=== PATIENT | female | born 1955 | race Caucasian/White ===

== ENCOUNTER 2020-06-01 15:04 | Inpatient (IN) ==
--- NOTE | 2020-06-01 15:02 | Emergency Department Note ---
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 Upon EMS arrival her symptoms were improving rapidly and only had a subtle left facial droop noted at rest. There is no upper face or eyelid involvement. She has no overt extremity weakness, though equivocal pronator drift. She has fluent speech at this time. Stroke alert was activated upon my discussion with EMS on med command call. Given the patient's minimal/residual symptoms that are quickly resolving unlike ly to proceed with TPA however will complete stroke alert evaluation. The patient did take 3 baby aspirin following the onset of her symptoms. She is not on anticoagulation. Of note, the patient does have a secondary exposure to COVID-19 through her where her 's father is COVID-19 positive and had interacted with his father but the patient herself has not. Neither her or herself have developed any Covid/flulike symptoms. She denies CP, SOB, n/v/d, urinary sx. On arrival the patient is slightly anxious but no acute distress, afebrile with stable vital signs. She has residual subtle left lower facial weakness/asymmetry at rest without any notable asymmetry with smile. There is no involvement of the forehead or eyelid. No gross extremity weakness upon cursory exam in the hallway on the way to CT from ambulance bay. The patient's did arrive to the emergency department and was instructed to wait outside and he gave us his phone # involve him in decision making. I did call the patient's and spoke to him and updated him on the toe stroke evaluation. CT of the head and CT of the head and neck were negative for ICH, ischemia or severe narrowing or occlusion of large vessels. The patient's symptoms did seem to fluctuate slightly with some of the upper extremity weakness and difficulty with coordination. Case was reviewed with Dr. Gonzalez, [facility] telestroke neurology, who evaluated the patient via telestroke monitor and after his evalua tion we did agree to defer TPA at this time given minimal symptoms and unclear COVID-19 status (which could contribute to bleeding risk). The patient was agreeable with this. Plan to load with 300 mg of closet Plavix after bedside swallow test was passed under the supervision of Dr. Gonzalez. Will need dual antiplatelet therapy for 30 days. Admitting team may consider Metformin given possibility of prediabetes and role endothelial function. SBP goal < 180. was updated on plan over the phone. He also agrees. Case d/w Fay Johns, Shahbaz PAC, with Nikko Mahmoodhammond general hospitalist who will evaluated the patient for admission. Triage Nursing notes reviewed and agree them. Additional history obtained from EMS Prior medical records reviewed Vital Signs: reviewed and remarkable for HTN. Differential diagnosis: Infection, dehydration, metabolic abnormality, hypo/hyperglycemia, electrolyte disturbance, anemia, hypoxia, cardiac sources, intracerebral event, toxicologic, neurologic, as well as other pathologies. ER treatment provided: See below. Diagnostics interpreted by me: ECG: Normal sinus rhythm, 85 bpm, no ectopy, no overt ST elevation or depression, QTC 433, QRS 80. Cardiac Monitoring: An order for continuous cardiac monitoring was placed and demonstrated NSR 85 bpm, no ectopy. Laboratory studies: See below Imaging studies: See below Consultation(s): Dr. Gonzalez, [facility] telestroke neurology. 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 Upon EMS arrival her symptoms were improving rapidly and only had a subtle left facial droop noted at rest. There is no upper face or eyelid involvement. She has no overt extremity weakness, though equivocal pronator drift. She has fluent speech at this time. Stroke alert was activated upon my discussion with EMS on med command call. Given the patient's minimal/residual symptoms that are quickly resolving unlikely to proceed with TPA however will complete stroke alert evaluation. The patient did take 3 baby aspirin following the onset of her symptoms. She is not on anticoagulation. Of note, the patient does have a secondary exposure to COVID-19 through her where her 's father is COVID-19 positive and had interacted with his father but the patient herself has not. Neither her or herself have developed any Covid/flulike symptoms. She denies CP, SOB, n/v/d, urinary sx. ROS: See above HPI for pertinent positives & negatives. A total of 10 systems reviewed and were otherwise negative. PAST MEDICAL HISTORY:See Below PAST SURGICAL HISTORY:See Below FAMILY HISTORY:See Below SOCIAL HISTORY:See Below HOME MEDICATIONS:See Below ALLERGIES:See Below VITALS:See Below PHYSICAL EXAMINATION: GENERAL: Awake, alert, anxious-appearing, in no distress HENT: Normocephalic, atraumatic. Oropharynx with dry mucous membranes and otherwise unremarkable. EYES: Normal conjunctiva. Sclera non-icteric. EOMI. No nystamgus. PEARRL. NECK: Supple. No nuchal rigidity. FROM. No JVD. RESPIRATORY: Clear to auscultation. CARDIAC: Regular rate, normal rhythm. Extremities warm and well perfused. Pulses equal. ABDOMEN: Soft, non-distended. No tenderness to palpation. No rebound or guarding. No masses. RECTAL: Deferred. MUSCULOSKELETAL: Chest examination reveals no tenderness. The back is symmetrical on inspection without obvious abnormality. There is no CVA tenderness to palpation. No joint edema. LOWER EXTREMITIES: Calves are equal size bilaterally and non-tender. No edema. No discoloration. NEURO: Mild left lower facial weakness with asymmetry at rest that is more subtle with full smile. No overt dysarthria. Speech is fluent. No overt weakness of extremities though left upper extremity is equivocal pronator drift. SKIN: No rash or jaundice noted. ED COURSE: Critical Care: I have personally spent greater than 35 minutes of critical care time in the di rect management of this patient. This includes bedside care, interpretation of diagnostic studies, and testing, discussion with consultants, patient, and family members, and other required patient management activities. This 35 minutes is in excess of all separately billable procedures. Past Med/Surg History Medical History Asthma GERD (gastroesophageal reflux disease) Hyperlipidemia Hypothyroidism Prediabetes Surgical History History of partial hysterectomy Family History Brother Diabetes Father Diabetes Grandfather (Paternal) Heart disease Mother Breast cancer Social History Smoking Status: Never smoker Second Hand Exposure: No; Do You Dip or Chew Tobacco: No; Hx Alcohol Use: Yes Alcohol type: wine Hx Substance Use: No Preferred Language: Zimbabwean Communication Ability: Effective Manager Emergency Required: No Beliefs That Will Affect Care: None marital status: Current Living Situation: Spouse current occupational status: employed 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[employer] Feels Safe at Home: Yes Safety Concerns: Feels Safe At This Time during the past year weight has: decreased > 10 lbs Assistive Devices: Glasses Allergies Allergies Allergy/AdvReac Type Severity Reaction Status Date / Time Quinolones Allergy Unknown "JOINTS Verified 06/01/20 17:15 START LOCKING UP." Home Meds Home Medications Medication Instructions Recorded Confirmed Vitamin B Powder 1 dose PO DAILY 06/01/20 06/01/20 albuterol sulfate 2.5 mg INHALATION Q4H PRN 06/01/20 06/01/20 albuterol sulfate [Proventil HFA] 2 inh INHALATION Q4H PRN 06/01/20 06/01/20 ascorbic acid (vitamin C) [Vitamin 250 mg PO BID 06/01/20 06/01/20 C] aspirin [Aspirin Low-Strength] 81 mg PO QPM 06/01/20 06/01/20 atorvastatin 10 mg PO QPM 06/01/20 06/01/20 budesonide-formoterol [Symbicort] 2 puff INHALATION DAILY 06/01/20 06/01/20 calcium carbonate-vitamin D3 1 tab PO DAILY 06/01/20 06/01/20 cholecalciferol (vitamin D3) 25 mcg PO DAILY 06/01/20 06/01/20 [Vitamin D3] coenzyme Q10 [Co Q-10] 10 mg PO DAILY 06/01/20 06/01/20 cyanocobalamin (vitamin B-12) 1,000 mcg PO DAILY 06/01/20 06/01/20 levothyroxine [Synthroid] 88 mcg PO QAM 06/01/20 06/01/20 montelukast 10 mg PO DAILY 06/01/20 06/01/20 multivitamin,lk-epmw-Ca-FA-min 1 tab PO QAM 06/01/20 06/01/20 [Multivitamin And Mineral] omega-3 acid ethyl esters [Lovaza] 1 cap PO QAM 06/01/20 06/01/20 Results & Data (ED) Vital Signs Vital Signs - 24 hr 06/01/20 15:20 06/01/20 15:22 06/01/20 15:26 Temperature 37.0 C Temperature Source Oral Pulse Rate 97 H 90 92 H Pulse Rate from SpO2 Sensor Respiratory Rate 20 Respiratory Effort / Characteristics Non-Labored Respiratory Depth Normal Blood Pressure 167/103 H 167/103 H Blood Pressure Mean 124 137 Pulse Oximetry 95 Oxygen Delivery Method Room Air Sepsis Recent Fever Within 48 Hours No Sepsis New/Unexplained Change in Mental Status N/A Sepsis Action Taken by Nursing No Action Required 06/01/20 15:30 06/01/20 15:43 06/01/20 15:50 Temperature Temperature Source Pulse Rate 90 100 H 90 Pulse Rate from SpO2 Sensor Respiratory Rate Respiratory Effort / Characteristics Respiratory Depth Blood Pressure 173/92 H Blood Pressure Mean 117 Pulse Oximetry Oxygen Delivery Method Sepsis Recent Fever Within 48 Hours Sepsis New/Unexplained Change in Mental Status Sepsis Action Taken by Nursing 06/01/20 16:00 06/01/20 16:10 06/01/20 16:20 Temperature Temperature Source Pulse Rate 97 H 87 86 Pulse Rate from SpO2 Sensor 88 Respiratory Rate Respiratory Effort / Characteristics Respiratory Depth Blood Pressure Blood Pressure Mean Pulse Oximetry 96 Oxygen Delivery Method Sepsis Recent Fever Within 48 Hours Sepsis New/Unexplained Change in Mental Status Sepsis Action Taken by Nursing 06/01/20 16:30 06/01/20 16:31 06/01/20 16:40 Temperature Temperature Source Pulse Rate 85 82 89 Pulse Rate from SpO2 Sensor 82 Respiratory Rate Respiratory Effort / Characteristics Respiratory Depth Blood Pressure 142/107 H Blood Pressure Mean 111 Pulse Oximetry 95 Oxygen Delivery Method Sepsis Recent Fever Within 48 Hours Sepsis New/Unexplained Change in Mental Status Sepsis Action Taken by Nursing 06/01/20 16:50 Temperature Temperature Source Pulse Rate 83 Pulse Rate from SpO2 Sensor 84 Respiratory Rate Respiratory Effort / Characteristics Respiratory Depth Blood Pressure Blood Pressure Mean Pulse Oximetry 98 Oxygen Delivery Method Sepsis Recent Fever Within 48 Hours Sepsis New/Unexplained Change in Mental Status Sepsis Action Taken by Nursing Laboratory Data Attestation: I reviewed the patient's lab results. Result diagrams: 06/01/20 16:13 06/01/20 16:13 Lab Results 06/01/20 06/01/20 06/01/20 Range/Units 15:32 15:50 15:50 WBC (4.8-10.8) K/uL RBC (4.2-5.4) M/uL Hgb (12.0-16.0) g/dL Hct (37-47) % MCV (80-100) fL MCH (25-34) pg MCHC (32-36) g/dL RDW Std Deviation (36.4-46.3) fL RDW Coeff of Marty (11.5-14.5) % Plt Count (130-400) K/uL MPV (7.4-10.4) fL Immature Gran % (Auto) % Neut % (Auto) % Lymph % (Auto) % Murray % (Auto) % Eos % (Auto) % Baso % (Auto) % Neut # (Auto) (1.4-6.5) K/uL Lymph # (Auto) (1.2-3.4) K/uL Murray # (Auto) (0.11-0.59) K/uL Eos # (Auto) (0-0.5) K/uL Baso # (Auto) (0-0.2) K/uL Immature Gran # (Auto) (0.00-0.02) K/uL PT (9.0-12.0) Seconds INR (0.9-1.1) APTT (21.0-31.0) Seconds PTT Ratio Sodium (136-145) mmol/L Potassium (3.5-5.1) mmol/L Chloride (98-107) mmol/L Carbon Dioxide (21-32) mmol/L Anion Gap (3-11) BUN (7-18) mg/dl Creatinine (0.6-1.2) mg/dl Est Cr Clr Drug Dosing ml/min Est GFR ( Amer) Est GFR (Non-Af Amer) BUN/Creatinine Ratio (10-20) Glucose (70-99) mg/dl POC Glucose 104 H (70-99) mg/dl Calcium (8.5-10.1) mg/dl Magnesium (1.8-2.4) mg/dl Total Bilirubin (0.2-1) mg/dl AST (15-37) U/L ALT (12-78) U/L Alkaline Phosphatase (45-117) U/L Troponin I (0-0.045) ng/ml Total Protein (6.4-8.2) gm/dl Albumin (3.4-5.0) gm/dl Globulin (2.5-4.0) gm/dl Albumin/Globulin Ratio (0.9-2) TSH (0.300-4.500) uIu/ml COVID-19 [facility] SARS-[facility]-2, RNA, NAAT NEGATIVE (NEGATIVE) Blood Type Antibody Screen 06/01/20 06/01/20 06/01/20 Range/Units 16:13 16:13 16:13 WBC 10.00 (4.8-10.8) K/uL RBC 5.24 (4.2-5.4) M/uL Hgb 15.1 (12.0-16.0) g/dL Hct 45.0 (37-47) % MCV 85.9 (80-100) fL MCH 28.8 (25-34) pg MCHC 33.6 (32-36) g/dL RDW Std Deviation 43.7 (36.4-46.3) fL RDW Coeff of Marty 14.1 (11.5-14.5) % Plt Count 219 (130-400) K/uL MPV 11.7 H (7.4-10.4) fL Immature Gran % (Auto) 0.2 % Neut % (Auto) 62.7 % Lymph % (Auto) 28.0 % Murray % (Auto) 5.6 % Eos % (Auto) 3.2 % Baso % (Auto) 0.3 % Neut # (Auto) 6.27 (1.4-6.5) K/uL Lymph # (Auto) 2.80 (1.2-3.4) K/uL Murray # (Auto) 0.56 (0.11-0.59) K/uL Eos # (Auto) 0.32 (0-0.5) K/uL Baso # (Auto) 0.03 (0-0.2) K/uL Immature Gran # (Auto) 0.02 (0.00-0.02) K/uL PT 10.5 (9.0-12.0) Seconds INR 1.0 (0.9-1.1) APTT 27.9 (21.0-31.0) Seconds PTT Ratio 1.0 Sodium (136-145) mmol/L Potassium (3.5-5.1) mmol/L Chloride (98-107) mmol/L Carbon Dioxide (21-32) mmol/L Anion Gap (3-11) BUN (7-18) mg/dl Creatinine (0.6-1.2) mg/dl Est Cr Clr Drug Dosing ml/min Est GFR ( Amer) Est GFR (Non-Af Amer) BUN/Creatinine Ratio (10-20) Glucose (70-99) mg/dl POC Glucose (70-99) mg/dl Calcium (8.5-10.1) mg/dl Magnesium (1.8-2.4) mg/dl Total Bilirubin (0.2-1) mg/dl AST (15-37) U/L ALT (12-78) U/L Alkaline Phosphatase (45-117) U/L Troponin I (0-0.045) ng/ml Total Protein (6.4-8.2) gm/dl Albumin (3.4-5.0) gm/dl Globulin (2.5-4.0) gm/dl Albumin/Globulin Ratio (0.9-2) TSH (0.300-4.500) uIu/ml COVID-19 Eval Order SARS-CoV-2, RNA, NAAT (NEGATIVE) Blood Type O Positive Antibody Screen NEGATIVE 06/01/20 06/01/20 Range/Units 16:13 16:13 WBC (4.8-10.8) K/uL RBC (4.2-5.4) M/uL Hgb (12.0-16.0) g/dL Hct (37-47) % MCV (80-100) fL MCH (25-34) pg MCHC (32-36) g/dL RDW Std Deviation (36.4-46.3) fL RDW Coeff of Marty (11.5-14.5) % Plt Count (130-400) K/uL MPV (7.4-10.4) fL Immature Gran % (Auto) % Neut % (Auto) % Lymph % (Auto) % Murray % (Auto) % Eos % (Auto) % Baso % (Auto) % Neut # (Auto) (1.4-6.5) K/uL Lymph # (Auto) (1.2-3.4) K/uL Murray # (Auto) (0.11-0.59) K/uL Eos # (Auto) (0-0.5) K/uL Baso # (Auto) (0-0.2) K/uL Immature Gran # (Auto) (0.00-0.02) K/uL PT (9.0-12.0) Seconds INR (0.9-1.1) APTT (21.0-31.0) Seconds PTT Ratio Sodium 138 (136-145) mmol/L Potassium 3.6 (3.5-5.1) mmol/L Chloride 103 (98-107) mmol/L Carbon Dioxide 26 (21-32) mmol/L Anion Gap 8.0 (3-11) BUN 26 H (7-18) mg/dl Creatinine 0.87 (0.6-1.2) mg/dl Est Cr Clr Drug Dosing 62.5 ml/min Est GFR ( Amer) 82.8 Est GFR (Non-Af Amer) 71.4 BUN/Creatinine Ratio 29.5 H (10-20) Glucose 96 (70-99) mg/dl POC Glucose (70-99) mg/dl Calcium 9.6 (8.5-10.1) mg/dl Magnesium 2.2 (1.8-2.4) mg/dl Total Bilirubin 0.6 (0.2-1) mg/dl AST 17 (15-37) U/L ALT 21 (12-78) U/L Alkaline Phosphatase 113 (45-117) U/L Troponin I < 0.015 (0-0.045) ng/ml Total Protein 7.6 (6.4-8.2) gm/dl Albumin 4.4 (3.4-5.0) gm/dl Globulin 3.2 (2.5-4.0) gm/dl Albumin/Globulin Ratio 1.4 (0.9-2) TSH 0.819 (0.300-4.500) uIu/ml COVID-19 Eval Order SARS-CoV-2, RNA, NAAT (NEGATIVE) Blood Type Antibody Screen Administered Medications Aspirin (Aspirin 81 Mg Ectab) 81 mg PO HS AMY Stop: 07/01/20 20:59 Last Admin: 06/01/20 21:21 Dose: 81 mg Documented by: [id number] Atorvastatin Calcium (Atorvastatin 40 Mg Tab) 40 mg PO HS AMY Stop: 07/01/20 20:59 Last Admin: 06/01/20 21:21 Dose: 40 mg Documented by: [id number] Heparin Sodium (Porcine) (Heparin Sod 5,000 Unit/0.5 Ml Vial) 5,000 units SQ Q8 AMY Stop: 07/01/20 21:59 Last Admin: 06/01/20 21:21 Dose: 5,000 units Documented by: [id number] Montelukast Sodium (Montelukast Sodium 10 Mg Tablet) 10 mg PO HS AMY Stop: 07/01/20 20:59 Last Admin: 06/01/20 21:21 Dose: 10 mg Documented by: [id number] Discontinued Medications Clopidogrel Bisulfate (Clopidogrel Bisulfate 300 Mg Tab) 300 mg PO NOW STA Stop: 06/01/20 16:15 Last Admin: 06/01/20 16:34 Dose: 300 mg Documented by: [id number] Gadobutrol (Gadobutrol 65ml Vial) 7.3 ml IV ONCE ONE Stop: 06/01/20 20:05 Last Admin: 06/01/20 20:05 Dose: 7.3 ml Documented by: [id number] Sodium Chloride (Nss 1000ml) 1,000 mls @ 999 mls/hr IV .Q1H1M ONE Stop: 06/01/20 15:59 Last Infusion: 06/01/20 17:35 Dose: 0 mls/hr Documented by: [id number] Admin: 06/01/20 15:54 Dose: 999 mls/hr Documented by: [id number] Ioversol (Optiray 320 125ml) 120 ml IV ONCE ONE Stop: 06/01/20 15:22 Last Admin: 06/01/20 15:21 Dose: 120 ml Documented by: [id number] Lorazepam (Lorazepam 0.5 Mg Tab) 0.5 mg PO ONCE ONE Stop: 06/01/20 18:14 Last Admin: 06/01/20 19:24 Dose: 0.5 mg Documented by: [id number] Discharge Plan Visit Data Chief Complaint: Stroke Alert ED Provider: Patrick Boo Discharge Problem: Cerebrovascular accident, Weakness on left side of face, Hypertension Patient Disposition: Admitted As Inpatient Discharge Instructions Interventions: ED Discharge Assessment Last Done: 06/01/20 17:48 Discharge Problem: Cerebrovascular accident Qualifiers: CVA mechanism: unspecified Qualified Code(s): I63.9 - Cerebral infarction, unspecified
[~2020-06-01 15:04] MED LIST: SODIUM CHLORIDE 0.9% 1000ML 1,000 ML IV ONE
--- OUTSIDE RECORDS SUMMARY | 2020-06-01 15:07 | External Medical Summary | Continuity of Care Document ---
:1955 Author Name Ellen Page Address Unavailable Unavailable , Care Team Providers Name Role Phone Arron Booth [email or web address] PCP, UNKNOWN Unavailable Unavailable Problems Active medical history not documented Allergies and Adverse Reactions Allergy history not documented Medications Medications not documented Procedures Procedures not documented Immunizations Immunizations not documented Plan of Treatment Planned Observations Planned Goals not documented Results No Known Results Results not documented
[2020-06-01] MEDS ORDERED: OPTIRAY 320 125ml IV ONE (15:21)
--- NOTE | 2020-06-01 15:24 | CT Scan Report ---
CT SCAN OF THE BRAIN WITHOUT IV CONTRAST CLINICAL HISTORY: Strokelike symptoms. Facial droop. COMPARISON STUDY: No priors. TECHNIQUE: Unenhanced axial CT scan of the brain is performed from the vertex to the skull base. A d ose lowering technique was utilized adhering to the principles of ALARA. FINDINGS: Brain parenchyma: There is minimal microangiopathic change. There is no hemorrhage, mass effect, or e vidence of acute territorial ischemia by CT criteria. Sánchez-white matter differentiation is preserved. No extra-axial fluid collection is seen. Ventricles, sulci, cisterns: Normal in configuration. Intracranial vasculature: The visualized intracranial vasculature at the skull base is normal in appe arance. Calvarium: Unremarkable. Sinuses and mastoids: The visualized paranasal sinuses are clear. The mastoid air cells are well pneu matized. Orbits: The bony orbits are grossly intact. IMPRESSION: There is no hemorrhage, mass effect, or evidence of acute territorial ischemia by CT [place]. ACT 112: Negative or not required by law. Electronically signed by: Easton Lara M.D. 06/01/2020 3:22 PM
--- NOTE | 2020-06-01 15:30 | CT Scan Report ---
CTA ANGIOGRAPHY OF THE HEAD CLINICAL HISTORY: Stroke evaluation. Facial droop. COMPARISON STUDY: No previous studies for comparison. TECHNIQUE: Helical axial images of the head were obtained following uneventful intravenous administr ation of 120 cc of Optiray 320. Sagittal and coronal reconstructions were viewed as well as maximal i ntensity projections on an independent 3-D workstation. Automated exposure control was utilized for the study. A dose lowering technique was utilized adhering to the principles of ALARA. CT DOSE: 972.57 mGy.cm FINDINGS: No acute intracranial hemorrhage, midline shift or mass effect is present. The brain volume is normal. Ventricular system is normal. Basal cisterns are patent. There are no extra-axial collect ions. There are no findings to suggest acute dural sinus thrombosis or acute territorial infarct. The bilateral M1, M2, A1 and A2 segments are patent. Posterior circulation is intact. There is no stenos is or aneurysm within the intracranial vessels. No dissection is noted. No central vessel occlusion i s noted. Postoperative findings within the sinuses are noted. There is no evidence for sinusitis. IMPRESSION: Unremarkable CTA of the head. ACT 112: Negative or not required by law. Electronically signed by: Ward Scherer M.D. 06/01/2020 3:25 PM
--- NOTE | 2020-06-01 15:32 | CT Scan Report ---
CT ANGIOGRAPHY OF THE NECK WITH CONTRAST CLINICAL HISTORY: Stroke evaluation. Facial droop. COMPARISON STUDY: No previous studies for comparison. Technique: CT angiography of the carotid and vertebral arteries was obtained using Convo 320 IV and 3D reconstruction on an independent workstation. NASCET criteria was utilized. Automated exposure c ontrol was utilized for the study. A dose lowering technique was utilized adhering to the principles of ALARA. Findings: There is no cervical lymphadenopathy. No cervical spine fracture is noted. The epiglottis i s normal. The bilateral common carotid, cervical internal carotid and vertebral arteries are patent. No dissection is noted. No aneurysm within the neck is noted. Minimal atherosclerotic plaque is prese nt. CTA of the head will be reported separately. IMPRESSION: Unremarkable CTA of the neck. No dissection. No stenosis. ACT 112: Negative or not required by law. Electronically signed by: Ward Scherer M.D. 06/01/2020 3:31 PM
[2020-06-01] MEDS ORDERED: CLOPIDOGREL BISULFATE 300 MG TAB PO STA (16:14)
[2020-06-01 16:21] LABS: Basophils # (auto) 0.03 K/uL (0-0.2); Basophils % (auto) 0.3 %; Eosinophils # (auto) 0.32 K/uL (0-0.5); Eosinophils % (auto) 3.2 %; Hemoglobin 15.1 g/dL (12.0-16.0); Immature Granulocytes # (auto) 0.02 K/uL (0.00-0.02); Immature Granulocytes % (auto) 0.2 %; Mean Corpuscular Hemoglobin 28.8 pg (25-34); Mean Corpuscular Hgb Conc 33.6 g/dL (32-36); Mean Corpuscular Volume 85.9 fL (80-100); Mean Platelet Volume 11.7 fL (7.4-10.4); Monocytes # (auto) 0.56 K/uL (0.11-0.59); Monocytes % (auto) 5.6 %; Neutrophils # (auto) 6.27 K/uL (1.4-6.5); Neutrophils % (auto) 62.7 %; Platelet Count 219 K/uL (130-400); RDW Coefficient of Variation 14.1 % (11.5-14.5); RDW Standard Deviation 43.7 fL (36.4-46.3); Red Blood Count 5.24 M/uL (4.2-5.4)
--- NOTE | 2020-06-01 16:38 | XRay Report ---
XR chest 1V portable CLINICAL HISTORY: stroke sx COMPARISON STUDY: Chest CT May 06, 2020. FINDINGS: Marked elevation of the right hemidiaphragm is unchanged since chest CT of May 06, 2012 . There is no pneumothorax or pleural effusion. There is no consolidation or evidence for pulmonary e ezio. Cardiomediastinal silhouette is normal. The appearance of the chest is unchanged. IMPRESSION: 1. No acute cardiopulmonary findings. 2. No change in appearance of the chest with marked elevation of the right hemidiaphragm. ACT 112: Negative or not required by law. Electronically signed by: Ward Scherer M.D. 06/01/2020 4:37 PM
[2020-06-01 16:39] LABS: Albumin Level 4.4 gm/dl (3.4-5.0); BUN Creatinine Ratio 29.5 (10-20); Blood Urea Nitrogen 26 mg/dl (7-18); Calcium 9.6 mg/dl (8.5-10.1); Carbon Dioxide 26 mmol/L (21-32); Chloride 103 mmol/L (98-107); Creatinine Clr Calc Pharmacy 62.5 ml/min; Est GFR (African American) 82.8; Est GFR (Non-African American) 71.4; Glucose 96 mg/dl (70-99); Magnesium 2.2 mg/dl (1.8-2.4); Potassium 3.6 mmol/L (3.5-5.1); Sodium 138 mmol/L (136-145)
[2020-06-01 16:41] LABS: Partial Thromboplastin Time 27.9 Seconds (21.0-31.0); Prothrombin Time 10.5 Seconds (9.0-12.0)
[2020-06-01 16:44] LABS: Alanine Aminotransferase 21 U/L (12-78); Albumin Globulin Ratio 1.4 (0.9-2); Alkaline Phosphatase 113 U/L (45-117); Aspartate Aminotransferase 17 U/L (15-37); Bilirubin,Total 0.6 mg/dl (0.2-1); Globulin 3.2 gm/dl (2.5-4.0); Total Protein 7.6 gm/dl (6.4-8.2); Troponin I < 0.015 ng/ml (0-0.045)
[2020-06-01] MEDS ORDERED: POLYETHYLENE (MIRALAX) 17 GM PACK PO PRN (16:51)
[2020-06-01] MEDS ORDERED: ONDANSETRON INJ 2 MG/ML 2 ML VIAL IV PRN (16:51)
[2020-06-01] MEDS ORDERED: ACETAMINOPHEN 325 MG TAB PO PRN (16:51)
[2020-06-01] MEDS ORDERED: NITROGLYCERIN SL 0.4 MG/TAB TAB SL PRN (16:51)
--- NOTE | 2020-06-01 17:06 | Electrocardiogram Report ---
Test Reason : Blood Pressure : / mmHG Vent. Rate : 085 BPM Atrial Rate : 085 BPM P-R Int : 158 ms QRS Dur : 080 ms QT Int : 364 ms P-R-T Axes : 044 008 042 degrees QTc Int : 433 ms Normal sinus rhythm Low voltage QRS Borderline ECG When compared with ECG of 07-MAY-2012 06:21, QT has lengthened Confirmed by Joe Renee ([id number]) on 06/01/2020 5:05:45 PM Referred By: ED Confirmed By:Joe Renee
--- NOTE | 2020-06-01 17:33 | History & Physical Report ---
Date of Service June 01, 2020 Assessment & Plan (1) TIA (transient ischemic attack): Pending MRI - symptoms have been improving but still with residual deficits - Neuro consult - Neuro checks - Monitor on telemetry - MRI brain - Check ECHO - Speech evaluation, PT/OT - Continue aspirin 81 mg daily - received loading dose of Plavix in ED. Consider dual antiplatelets pending neuro eval (2) Hypothyroidism: - Check TSH - Continue home dose of levothyroxine (3) Hyperlipidemia: - Increase atorvastatin to 40 mg daily - Check lipid panel (4) Asthma: Last exacerbation in December - denies any increased symptoms at present - Continue Symbicort and Singulair (5) Prediabetes: A1C has improved from 6.1 to 5.7 with lifestyle modification and weight loss - will check A1c this admission Pt seen and reviewed with collaborating physician, Dr. Roberson. Plan of care discussed and as outlined above. All questions from the patient were answered. She requests to be a full code. Nancy Johns PA-C History of Present Illness Chief Complaint: Stroke Alert Primary Care Provider: Daphne Neville MD This is a 64 y/o female with a PMH of prediabetes, GERD, dyslipidemia, hypothyroidism and asthma who presented to the ED this afternoon with the abrupt onset of stroke-like symptoms around 2 pm today. Stroke alert was called. 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 The nurse apparently noticed a mild left facial droop so started the process for transfer to the ED. In the ED, pt noted left handed weakness and then subsequently left lip numbness and tingling. Shortly after arrival however, her symptoms started to improve. At present, she notices some residual left facial weakness, left hand weakness, and left lip decreased sensation. She denies lower extremity symptoms, dysarthria or dysphagia. She did pass a bedside swallow evaluation thought she notes some "dribbling" from her lips when she attempted to drink water. She denies any similar symptoms prior. No history of hypertension. She does have a history of prediabetes but reports that she has modified her lifestyle including regular exercise and has subsequently lost 20 lbs with improvement of her sugars. She does not take any medications for DM. No family history of stroke. Her nultfd-vc-dbi was recently diagnosed with COVID and her was around him but pt was not directly exposed. She denies any fevers, chills, cough, SOB, loss of taste or smell. Her COVID test in the ED was negative. Allergies Allergy/AdvReac Type Severity Reaction Status Date / Time Quinolones Allergy Unknown "JOINTS Verified 06/01/20 17:15 START LOCKING UP." Home Medications Medication Instructions Recorded Confirmed Type Vitamin B Powder 1 dose PO DAILY 06/01/20 06/01/20 History albuterol sulfate 2.5 mg INHALATION Q4H PRN 06/01/20 06/01/20 History albuterol sulfate [Proventil HFA] 2 inh INHALATION Q4H PRN 06/01/20 06/01/20 History ascorbic acid (vitamin C) [Vitamin 250 mg PO BID 06/01/20 06/01/20 History C] aspirin [Aspirin Low-Strength] 81 mg PO QPM 06/01/20 06/01/20 History atorvastatin 10 mg PO QPM 06/01/20 06/01/20 History budesonide-formoterol [Symbicort] 2 puff INHALATION DAILY 06/01/20 06/01/20 History calcium carbonate-vitamin D3 1 tab PO DAILY 06/01/20 06/01/20 History cholecalciferol (vitamin D3) 25 mcg PO DAILY 06/01/20 06/01/20 History [Vitamin D3] coenzyme Q10 [Co Q-10] 10 mg PO DAILY 06/01/20 06/01/20 History cyanocobalamin (vitamin B-12) 1,000 mcg PO DAILY 06/01/20 06/01/20 History levothyroxine [Synthroid] 88 mcg PO QAM 06/01/20 06/01/20 History montelukast 10 mg PO DAILY 06/01/20 06/01/20 History multivitamin,fd-msss-Mh-FA-min 1 tab PO QAM 06/01/20 06/01/20 History [Multivitamin And Mineral] omega-3 acid ethyl esters [Lovaza] 1 cap PO QAM 06/01/20 06/01/20 History Past Med/Surg History Medical History Asthma GERD (gastroesophageal reflux disease) Hyperlipidemia Hypothyroidism Prediabetes Surgical History History of partial hysterectomy Family History (Updated 06/01/20 @ 18:00 by Fay Johns PA-C) Brother Diabetes Father Diabetes Grandfather (Paternal) Heart disease Mother Breast cancer Social History (Updated 06/01/20 @ 17:42 by Fay Johns PA-C) Smoking Status: Never smoker Second Hand Exposure: No; Do You Dip or Chew Tobacco: No; Hx Alcohol Use: Yes Alcohol type: wine Hx Substance Use: No Preferred Language: Hungarian Communication Ability: Effective Electrical Laboratory Technician Required: No Beliefs That Will Affect Care: None marital status: Current Living Situation: Spouse current occupational status: employed 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[employer] Feels Safe at Home: Yes Safety Concerns: Feels Safe At This Time during the past year weight has: decreased > 10 lbs Assistive Devices: Glasses Review of Systems Review of Systems: All systems reviewed & are unremarkable except as noted in HPI & below Constitutional: no fever, no chills, no fatigue and no anorexia Eyes: no diplopia, not seeing flashes and no worsening vision Ear, Nose, Mouth, Throat: no nasal congestion, no nasal discharge, no facial pain, no sore throat, no dysphagia and no pain with swallowing Respiratory: no cough, no chest congestion, no dyspnea, no hemoptysis and no wheezing Cardiovascular: + lightheadedness; no chest pain, no palpitations, no syncope and no edema Gastrointestinal: no abdominal pain, no heartburn, no nausea, no vomiting, no dysphagia, no change in bowel habits, no diarrhea/loose stools and no blood in stools Genitourinary: no dysuria, no difficulty urinating, no urinary frequency and no hematuria Musculoskeletal: no back pain and no neck pain Integumentary: no rash and no skin ulcer Neurologic: as per Subjective / HPI, + localized weakness, + loss of sensation and + numbness; no falls, no seizure-like activity, no syncope, no headache(s) and no confusion Psychiatric: no depression and no anxiety Physical Exam Constitutional: WD/WN, vitals as above no acute distress Eyes: PERRL, conjunctivae normal, anicteric sclerae ENMT: external ear and nose normal, oropharynx normal Neck: trachea midline Respiratory: normal respiratory effort, lungs clear to auscultation Auscultation: no rales, no rhonchi and no wheezes Cardiovascular: Rate/Rhythm: regular rate and regular rhythm Heart Sounds: no gallop, no murmur and no cardiac rub Gastrointestinal (Abdomen): Inspection/Auscultation: normal bowel sounds; abdomen not distended Percussion/Palpation: abdomen soft; abdomen nontender Musculoskeletal: Head/Neck/Chest: normocephalic, head atraumatic and neck supple Extremities: no cyanosis and no clubbing Skin: no rashes, warm and dry Neurologic: + focal motor deficit Speech / Cognition: normal speech Motor/Sensory: no tremor Cranial Nerves: tongue midline, able to rotate head bilaterally and symmetric palate elevation Mild left facial droop noted with smiling > frowning, left hand pharmacology associate strength 3/5, right hand 5/5, left and right elbow flexion/extension 5/5 and equal, bilateral LE strength 5/5 Psychiatric: A+Ox3, euthymic affect Results & Data Results & Data ([facility]) Vital Signs (Past 12 Hours) Vital Signs Temp Pulse Resp BP Pulse Ox 06/01/20 17:01 84 98 06/01/20 17:00 78 131/88 98 06/01/20 16:50 83 98 06/01/20 16:40 89 06/01/20 16:31 82 142/107 H 95 06/01/20 16:30 85 06/01/20 16:20 86 96 06/01/20 16:10 87 06/01/20 16:00 97 H 06/01/20 15:50 90 173/92 H 06/01/20 15:43 100 H 06/01/20 15:30 90 06/01/20 15:26 92 H 06/01/20 15:22 90 167/103 H 06/01/20 15:20 37.0 C 97 H 20 167/103 H 95 Laboratory Results Laboratory Results - last 24 hr 06/01/20 06/01/20 06/01/20 15:32 15:50 15:50 WBC RBC Hgb Hct MCV MCH MCHC RDW Std Deviation RDW Coeff of Marty Plt Count MPV Immature Gran % (Auto) Neut % (Auto) Lymph % (Auto) Stearns % (Auto) Eos % (Auto) Baso % (Auto) Neut # (Auto) Lymph # (Auto) Stearns # (Auto) Eos # (Auto) Baso # (Auto) Immature Gran # (Auto) PT INR APTT PTT Ratio Sodium Potassium Chloride Carbon Dioxide Anion Gap BUN Creatinine Est Cr Clr Drug Dosing Est GFR ( Amer) Est GFR (Non-Af Amer) BUN/Creatinine Ratio Glucose POC Glucose 104 H Estimat Average Glucose Hemoglobin A1c Calcium Magnesium Total Bilirubin AST ALT Alkaline Phosphatase Troponin I Total Protein Albumin Globulin Albumin/Globulin Ratio TSH COVID-19 Eval [facility] SARS-CoV-2, RNA, NAAT NEGATIVE Blood Type Antibody Screen 06/01/20 06/01/20 06/01/20 16:13 16:13 16:13 WBC 10.00 RBC 5.24 Hgb 15.1 Hct 45.0 MCV 85.9 MCH 28.8 MCHC 33.6 RDW Std Deviation 43.7 RDW Coeff of Marty 14.1 Plt Count 219 MPV 11.7 H Immature Gran % (Auto) 0.2 Neut % (Auto) 62.7 Lymph % (Auto) 28.0 Stearns % (Auto) 5.6 Eos % (Auto) 3.2 Baso % (Auto) 0.3 Neut # (Auto) 6.27 Lymph # (Auto) 2.80 Stearns # (Auto) 0.56 Eos # (Auto) 0.32 Baso # (Auto) 0.03 Immature Gran # (Auto) 0.02 PT 10.5 INR 1.0 APTT 27.9 PTT Ratio 1.0 Sodium Potassium Chloride Carbon Dioxide Anion Gap BUN Creatinine Est Cr Clr Drug Dosing Est GFR ( Amer) Est GFR (Non-Af Amer) BUN/Creatinine Ratio Glucose POC Glucose Estimat Average Glucose Hemoglobin A1c Calcium Magnesium Total Bilirubin AST ALT Alkaline Phosphatase Troponin I Total Protein Albumin Globulin Albumin/Globulin Ratio TSH COVID-19 Eval Order SARS-CoV-2, RNA, NAAT Blood Type O Positive Antibody Screen NEGATIVE 06/01/20 06/01/20 06/01/20 16:13 16:13 16:13 WBC RBC Hgb Hct MCV MCH MCHC RDW Std Deviation RDW Coeff of Marty Plt Count MPV Immature Gran % (Auto) Neut % (Auto) Lymph % (Auto) Stearns % (Auto) Eos % (Auto) Baso % (Auto) Neut # (Auto) Lymph # (Auto) Stearns # (Auto) Eos # (Auto) Baso # (Auto) Immature Gran # (Auto) PT INR APTT PTT Ratio Sodium 138 Potassium 3.6 Chloride 103 Carbon Dioxide 26 Anion Gap 8.0 BUN 26 H Creatinine 0.87 Est Cr Clr Drug Dosing 62.5 Est GFR ( Amer) 82.8 Est GFR (Non-Af Amer) 71.4 BUN/Creatinine Ratio 29.5 H Glucose 96 POC Glucose Estimat Average Glucose Pending Hemoglobin A1c Pending Calcium 9.6 Magnesium 2.2 Total Bilirubin 0.6 AST 17 ALT 21 Alkaline Phosphatase 113 Troponin I < 0.015 Total Protein 7.6 Albumin 4.4 Globulin 3.2 Albumin/Globulin Ratio 1.4 TSH Pending COVID-19 Eval Order SARS-CoV-2, RNA, NAAT Blood Type Antibody Screen Diagnostic Findings Chest X-ray 06/01/20 - IMPRESSION: 1. No acute cardiopulmonary findings. 2. No change in appearance of the chest with marked elevation of the right hemidiaphragm. CT Head 06/01/20 - IMPRESSION: There is no hemorrhage, mass effect, or evidence of acute territorial ischemia by CT criteria. CTA Head 06/01/20 - IMPRESSION: Unremarkable CTA of the head. CTA Neck 06/01/20 - IMPRESSION: Unremarkable CTA of the neck. No dissection. No stenosis. Medications Administered Discontinued Medications Clopidogrel Bisulfate (Clopidogrel Bisulfate 300 Mg Tab) 300 mg PO NOW STA Stop: 06/01/20 16:15 Last Admin: 06/01/20 16:34 Dose: 300 mg Documented by: [id number] Sodium Chloride (Nss 1000ml) 1,000 mls @ 999 mls/hr IV .Q1H1M ONE Stop: 06/01/20 15:59 Last Infusion: 06/01/20 17:35 Dose: 0 mls/hr Documented by: [id number] Admin: 06/01/20 15:54 Dose: 999 mls/hr Documented by: [id number] Ioversol (Optiray 320 125ml) 120 ml IV ONCE ONE Stop: 06/01/20 15:22 Last Admin: 06/01/20 15:21 Dose: 120 ml Documented by: [id number] Code Status & VTE Plan VTE Prophylaxis Plan VTE Prophylaxis will be ordered: Yes Supervising Physician Co-Signing Physician Notes Attending addendum ; pt seen and examined , care co-ordinated with Fay Johns PA-C 64 yo F with no significant past medical hx presented with sudden onset of left sided weakness , symptoms improved after arrival to ER STROKE ALERT was called CTA head /neck /CT head shows no acute change /MRI of brain -was pending during stroke alert Per [place] [facility] -tPA was not indicated recommended dual antiplatelets , high intensity stain , permissive HTN ECHO , tele monitoring for evaluation of arrythmia MRI of brain shows acute CVA on rt frontal area cont neuro check pt admitted to tele , neurology consulted pt was given Plavix loading dose 300 mg in ER will continue on aspirin 81 mg/plavix 75 mg form AM PT/OT /Speech eval requested please refer to further documentation by Fay Johns PA-C for discussion of other chronic issues Fior Roberson MD (1) Hyperlipidemia Hyperlipidemia type: unspecified Qualified Code(s): E78.5 - Hyperlipidemia, unspecified (2) Hypothyroidism Hypothyroidism type: acquired Qualified Code(s): E03.9 - Hypothyroidism, unspecified (3) Asthma Asthma complication type: uncomplicated Asthma persistence: unspecified Asthma severity: mild Qualified Code(s): J45.909 - Unspecified asthma, uncomplicated
[2020-06-01] MEDS ORDERED: LORazepam 0.5 MG TAB PO ONE (18:13)
[2020-06-01] MEDS ORDERED: PHARMACIST DISCHARGE MED REC CONSULT PRN (18:13)
[2020-06-01] MEDS ORDERED: GADOBUTROL 65ML VIAL IV ONE (20:04)
[2020-06-01] MEDS ORDERED: Nursing to Pharmacy Communication SCH (20:45)
[2020-06-01] MEDS: ASPIRIN 81 MG ECTAB PO SCH (21:21)
[2020-06-01] MEDS: ATORVASTATIN 40 MG TAB PO SCH (21:21)
[2020-06-01] MEDS: MONTELUKAST SODIUM 10 MG TABLET PO SCH (21:21)
[2020-06-01] MEDS: HEPARIN SOD 5,000 UNIT/0.5 ML VIAL SQ SCH (21:21)
--- NOTE | 2020-06-01 21:24 | Magnetic Resonance Report ---
MR brain wo/w con HISTORY: 64 years-old Female stroke like symptoms acute strokelike symptoms COMPARISON: Head CT, CTA head neck of same day TECHNIQUE: Multiplanar multisequence MRI of the brain was obtained both with and without the use of 7 .3 mL Gadavist FINDINGS: Wheel Loader Operator localizer images demonstrate no gross extracranial abnormality. 1.8 x 0.9 cm area of cortically based restricted diffusion involves the right frontal lobe near the vertex, image 17 series 4 withou t appreciable abnormal T2/FLAIR signal. No acute territorial infarct. Midline structures including th e corpus callosum, brainstem, optic chiasm, pituitary and pineal glands appear unremarkable the sagit ferdinand T1 series. No cerebellar tonsillar herniation. No acute intracranial hemorrhage, midline shift, abnormal extra-axial collection, hydrocephalus or in tracranial mass. No abnormal intra-axial or extra-axial enhancement. Minimal patchy white matter T2/F LAIR hyperintensities within the bilateral frontal hemispheres suggests a component of chronic microv ascular ischemic disease. Cerebral venous sinuses and major arterial flow voids at the level of the s kull base appear patent. Mastoid air cells are generally clear. Mild mucosal thickening of the ethmoi d air cells. Rightward bowing and spurring of the nasal septum. Skull, orbits and soft tissues are un remarkable. IMPRESSION: 1. Acute infarct of the right frontal lobe near the vertex, 1.8 x 0.9 cm. 2. No abnormal enhancement. 3. No acute intracranial hemorrhage or midline shift. ACT 112: Negative or not required by law. The above report was generated using voice recognition software. It may contain grammatical, syntax o r spelling errors. Electronically signed by: Jose David Douglas M.D. 06/01/2020 9:23 PM
[2020-06-02] MEDS: LEVOTHYROXINE SODIUM 88 MCG TABLET PO SCH (05:16)
[2020-06-02] MEDS: HEPARIN SOD 5,000 UNIT/0.5 ML VIAL SQ SCH ×3 (05:16→20:43)
[2020-06-02 06:00] LABS: Estimated Average Glucose 120 mg/dl; Hemoglobin A1C 5.8 % (4.5-5.6)
[2020-06-02 07:02] LABS: Chol HDL Ratio 2; Cholesterol 137 mg/dl (0-200); HDL Cholesterol 66 mg/dl; LDL Cholesterol Calculated 54 mg/dl; Triglycerides 87 mg/dl (0-150); VLDL Cholesterol 17 mg/dl
[2020-06-02] MEDS: OMEGA-3 (PURIFIED FISH OIL) 1 GM CAP PO SCH (08:29)
[2020-06-02] MEDS: CALCIUM 600MG + VIT D 400 IU TAB PO SCH (08:29)
[2020-06-02] MEDS: CHOLECALCIFEROL 1,000 UNITS 25 MCG TAB PO SCH (08:29)
[2020-06-02] MEDS: CYANOCOBALAMIN 500 MCG TABLET (VITAMIN B-12) PO SCH (08:29)
[2020-06-02] MEDS: FLUTICASONE/VILANTEROL 100/25MCG 14 PUFFS/INHALER INH SCH (08:30)
[2020-06-02] MEDS: CLOPIDOGREL BISULFATE 75 MG TAB PO SCH (08:30)
[2020-06-02] MEDS ORDERED: NON-FORMULARY MEDICATION (Coenzyme Q10 [Co Q-10] 10 mg Capsule) PO SCH (09:00)
[2020-06-02] MEDS ORDERED: ASPIRIN 81 MG ECTAB PO SCH (09:00)
[2020-06-02] MEDS ORDERED: MONTELUKAST SODIUM 10 MG TABLET PO SCH (09:00)
[2020-06-02] MEDS ORDERED: ATORVASTATIN 40 MG TAB PO SCH (09:00)
[2020-06-02] MEDS: SODIUM CHLORIDE 0.9% 1000ML 1,000 ML IV SCH ×3 (12:05→22:05)
--- NOTE | 2020-06-02 15:55 | Neurology Consultation ---
Date of Consultation June 02, 2020 Assessment & Plan (1) Cerebrovascular accident: 1. MRI - acute right frontal lobe infarct 2. CTA head and neck - no acute findings 3. cardiology for further definition of TTE with intra pulm shunt 4. continue aspirin 81 mg and add plavix 75 mg daily x 21 days then stop aspirin continue plavix for a life time 5. optimize HTN, HLD, DM LDL <70 6. ZIO as out patient 7. PT/OT speech for discharge needs 8. will see in neurology in 4-6 weeks after discharge Present on Admission?: Yes (2) Weakness on left side of face: Supervising Physician Co-Signing Physician Notes Patient was seen and examined. Admitted with left facial droop, left hand apraxia, and mild dysarthria. CTA head and neck normal. MRI brain showed right MCA ischemic stroke which appears embolic. TTE shows a possible intrapulmonary shunt. Will obtain venous dopplers and MAGNUS. Will start ASA and Plavix 75 mg daily for 21- days then Plavix 75 mg daily. Will need Zio patch as outpatient. Continue telemetry while inpatient. Continue home statin. Will need outpatient neurology follow up in 8 weeks. History of Present Illness Reason for Consultation: stroke Requesting Physician: Tico Garner MD Attending Physician: Tico Garner MD History of Present Illness Cindy is a 64 year old female with a PMH -prediabetes, GERD, HLD, hypot hyroidism and asthma who presented with the abrupt onset of stroke-like symptoms around 2 pm yesterday. Stroke alert was called. 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 She then noticed that her left jaw felt numb and tingling so she called the school nurse who noticed a mild left facial droop so started the process for transfer to the ED. In the ED she also had left handed weakness and then subsequently left lip numbness and tingling. Her symptoms started to improve and but did have some residual left facial weakness, left hand weakness, and left lip decreased sensation. She passed a bedside swallow evaluation thought she notes some "dribbling" from her lips when she attempted to drink water. She does have a history of prediabetes but reports that she has modified her lifestyle including regular exercise and has subsequently lost 20 lbs with improvement of her sugars. There is no family history of stroke but does have heart disease in her family. She was on a baby aspirin prior to the event which she took daily and took 3 aspirin when the event started. She was exposed to COVID test but was negative in the ED. denies CP, SOB, abdominal pain, vision changes swallowing difficulty, N, V. +facial droop and left hand numbness. Allergies Allergy/AdvReac Type Severity Reaction Status Date / Time Quinolones Allergy Unknown "JOINTS Verified 06/01/20 17:15 START LOCKING UP." Home Medications Medication Instructions Recorded Confirmed Type Vitamin B Powder 1 dose PO DAILY 06/01/20 06/01/20 History albuterol sulfate 2.5 mg INHALATION Q4H PRN 06/01/20 06/01/20 History albuterol sulfate [Proventil HFA] 2 inh INHALATION Q4H PRN 06/01/20 06/01/20 History ascorbic acid (vitamin C) [Vitamin 250 mg PO BID 06/01/20 06/01/20 History C] aspirin [Aspirin Low-Strength] 81 mg PO QPM 06/01/20 06/01/20 History atorvastatin 10 mg PO QPM 06/01/20 06/01/20 History budesonide-formoterol [Symbicort] 2 puff INHALATION DAILY 06/01/20 06/01/20 History calcium carbonate-vitamin D3 1 tab PO DAILY 06/01/20 06/01/20 History cholecalciferol (vitamin D3) 25 mcg PO DAILY 06/01/20 06/01/20 History [Vitamin D3] coenzyme Q10 [Co Q-10] 10 mg PO DAILY 06/01/20 06/01/20 History cyanocobalamin (vitamin B-12) 1,000 mcg PO DAILY 06/01/20 06/01/20 History levothyroxine [Synthroid] 88 mcg PO QAM 06/01/20 06/01/20 History montelukast 10 mg PO DAILY 06/01/20 06/01/20 History multivitamin,gz-ouft-Ss-FA-min 1 tab PO QAM 06/01/20 06/01/20 History [Multivitamin And Mineral] omega-3 acid ethyl esters [Lovaza] 1 cap PO QAM 06/01/20 06/01/20 History Patient History Medical History Asthma GERD (gastroesophageal reflux disease) Hyperlipidemia Hypothyroidism Prediabetes Surgical History History of partial hysterectomy Family History Brother Diabetes Father Diabetes Grandfather (Paternal) Heart disease Mother Breast cancer Social History Smoking Status: Never smoker Second Hand Exposure: No; Do You Dip or Chew Tobacco: No; Hx Alcohol Use: Yes Alcohol type: wine Hx Substance Use: No Preferred Language: Gabonese Communication Ability: Effective 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 Beliefs That Will Affect Care: None marital status: Current Living Situation: Spouse current occupational status: employed 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[employer] 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 Safe at 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: Yes Safety Concerns: Feels Safe At This Time during the past year weight has: decreased > 10 lbs Assistive Devices: Glasses Review of Systems Review of Systems: All systems reviewed & are unremarkable except as noted in HPI & below and All systems reviewed & are unremarkable except as noted in Subjective Physical Exam Physical Exam: Physical Exam: Constitutional: appearance over nourished, healthy and normal Ears, Nose, Mouth and Throat: mucous membranes moist, no injection and skin normal, eyes normal Cardiovascular: normal S-1 and S-2 and regular rate and rhythm Respiratory: clear to auscultation (CTA) and no rales, rhonchi or wheeze Musculoskeletal: no peripheral edema and good distal pulses Skin: no stigmata of neurocutaneous disease noted and normal and intact Eyes: extraocular muscles intact (EOMI) and pupils equal, round and reactive to light (PERRL), gross visual haile intact NEUROLOGIC EXAMINATION: Mental status: Alert and interactive Oriented to full date and location Oriented to person Speech slight dysphasia with some words Cranial Nerves eye brow raise symmetric, left facial droop Reflexes: Deep tendon reflexes were symmetrical and graded 2/5. Sensory: decreased sensation on left face and arm Coordination: finger to nose no bi pass, rapid hand movement dysmetric, Gait/Stance: Posture sitting up in bed Motor: Negative for pronator drift of out stretched arms with eyes closed. 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4) fL BUN (7-18) mg/dl BUN/Creatinine Ratio (10-20) POC Glucose 111 H 100 H (70-99) mg/dl Hemoglobin A1c (4.5-5.6) % Diagnostic Findings MRI brain-Acute infarct of the right frontal lobe near the vertex, 1.8 x 0.9 cm. No abnormal enhancement. No acute intracranial hemorrhage or midline shift. CTA neck head- unremarkable TTE- EF 60-65% intra pulm. shunt (1) Cerebrovascular accident CVA mechanism: unspecified Qualified Code(s): I63.9 - Cerebral infarction, unspecified
--- NOTE | 2020-06-02 17:17 | Hospitalist Progress Note ---
Date of Service June 02, 2020 Assessment & Plan (1) Cerebrovascular accident: Brain MRI: (+) acute infarct right frontal lobe CTA Head and Neck: no stenosis Echo: possible pulmonary shunt right to left Telemetry: sinus rhythm symptoms somewhat improved PT/OT , Speech eval pending Plavix added to Aspirin, x 3 weeks, then Plavix alone Lipitor increased to 40mg daily will need Zio Patch (2) Hypothyroidism: - TSH 0.8 - Continue home dose of levothyroxine (3) Hyperlipidemia: - Increased atorvastatin to 40 mg daily - LDL 54 (4) Asthma: Last exacerbation in December - denies any increased symptoms at present - Continue Symbicort and Singulair (5) Prediabetes: A1C has improved from 6.1 to 5.7 with lifestyle modification and weight loss - A1c 5.8 Heparin SC q8h PT/OT, Speech Eval pending lives with family at home Admission and Anticipated Discharge Date Admission Date: June 01, 2020 Subjective ff up for acute CVA seen resting in bed, comfortable states she feels tired, not able to sleep last night due to activities in the room states left lip and lower cheek numbness still present but less, no problems with swallowing and speech still has some weakness on the left upper arm and hand denies other focal neuro deficits no headache, chest pain, palpitations, dizziness, abdominal pain, nausea/vomiting no other symptoms Review of Systems Review of Systems: All systems reviewed & are unremarkable except as noted in Subjective Physical Exam Physical Exam: General- oriented x 3, not in distress, speaks in sentences with no effort or accessory muscle use Eyes- anicteric Neck- no JVD Lungs- clear breath sounds bilaterally, no rales/wheezes Heart- normal rate, regular rhythm; no murmurs Abdomen- normal bowel sounds, nondistended, soft, nontender Extremities- no pretibial edema, no calf tenderness Neuro- alert, oriented x 3; CN 2-12 intact except for mild left facial droop, Strength 4/5 on the left UE, 5/5 on the right sensation 100% on all ext Skin- warm & dry Results & Data Results & Data ([facility]) Vital Signs (Past 12 Hours) Vital Signs Temp Pulse Pulse Resp BP Pulse Ox 06/02/20 15:50 36.7 C 74 18 126/73 95 06/02/20 12:09 37.0 C 83 18 120/76 94 11/18/20 08:00 75 06/02/20 05:40 74 Laboratory Results Laboratory Results - last 24 hr 06/01/20 06/01/20 06/01/20 16:13 16:13 20:21 POC Glucose 111 H Estimat Average Glucose 120 Hemoglobin A1c 5.8 H Triglycerides Cholesterol LDL Cholesterol, Calc VLDL Cholesterol, Calc HDL Cholesterol Cholesterol/HDL Ratio TSH 0.819 Hepatitis C Ab Screen 06/02/20 06/02/20 06/02/20 06:12 06:12 07:56 POC Glucose 96 Estimat Average Glucose Hemoglobin A1c Triglycerides 87 Cholesterol 137 LDL Cholesterol, Calc 54 VLDL Cholesterol, Calc 17 HDL Cholesterol 66 Cholesterol/HDL Ratio 2 TSH Hepatitis C Ab Screen Neg 06/02/20 06/02/20 11:39 16:19 POC Glucose 100 H 86 Estimat Average Glucose Hemoglobin A1c Triglycerides Cholesterol LDL Cholesterol, Calc VLDL Cholesterol, Calc HDL Cholesterol Cholesterol/HDL Ratio TSH Hepatitis C Ab Screen (1) Hypothyroidism Hypothyroidism type: acquired Qualified Code(s): E03.9 - Hypothyroidism, unspecified (2) Hyperlipidemia Hyperlipidemia type: unspecified Qualified Code(s): E78.5 - Hyperlipidemia, unspecified (3) Asthma Asthma severity: mild Asthma persistence: unspecified Asthma complication type: uncomplicated Qualified Code(s): J45.909 - Unspecified asthma, uncomplicated (4) Cerebrovascular accident CVA mechanism: unspecified Qualified Code(s): I63.9 - Cerebral infarction, unspecified
--- NOTE | 2020-06-02 18:27 | Ultrasound Report ---
ULTRASOUND BILATERAL LOWER EXTREMITY VENOUS CLINICAL HISTORY: Right left cardiac shunt. COMPARISON STUDY: No priors. TECHNIQUE: Real-time, grayscale, and color Doppler sonography of the deep veins of the right and left lower extremity was performed from the inguinal crease to the calf. Compression and augmentation wer e utilized. FINDINGS: There is no sonographic evidence of deep venous thrombosis identified in the right or left lower extremity. The common femoral, superficial femoral, and popliteal veins are patent and normally compressible bilaterally. The greater saphenous vein and the profunda femoris vein at the junction w ith the common femoral vein are clear in both legs. The visualized calf veins are patent bilaterally. IMPRESSION: There is no sonographic evidence of deep venous thrombosis identified in the right or lef t lower extremity. ACT 112: Negative or not required by law. Electronically signed by: Easton Lara M.D. 06/02/2020 6:25 PM
[2020-06-02] MEDS: MONTELUKAST SODIUM 10 MG TABLET PO SCH (20:42)
[2020-06-02] MEDS: ASPIRIN 81 MG ECTAB PO SCH (20:43)
[2020-06-02] MEDS: ATORVASTATIN 40 MG TAB PO SCH (20:43)
[2020-06-03] MEDS: SODIUM CHLORIDE 0.9% 1000ML 1,000 ML IV SCH (05:45)
[2020-06-03] MEDS: HEPARIN SOD 5,000 UNIT/0.5 ML VIAL SQ SCH (06:10)
[2020-06-03] MEDS: LEVOTHYROXINE SODIUM 88 MCG TABLET PO SCH (06:10)
[2020-06-03] MEDS: OMEGA-3 (PURIFIED FISH OIL) 1 GM CAP PO SCH (07:52)
[2020-06-03] MEDS: CHOLECALCIFEROL 1,000 UNITS 25 MCG TAB PO SCH (07:52)
[2020-06-03] MEDS: FLUTICASONE/VILANTEROL 100/25MCG 14 PUFFS/INHALER INH SCH (07:52)
[2020-06-03] MEDS: CALCIUM 600MG + VIT D 400 IU TAB PO SCH (07:52)
[2020-06-03] MEDS: CLOPIDOGREL BISULFATE 75 MG TAB PO SCH (07:53)
[2020-06-03] MEDS: CYANOCOBALAMIN 500 MCG TABLET (VITAMIN B-12) PO SCH (07:53)
--- NOTE | 2020-06-03 12:45 | Discharge Summary ---
Date of Service June 03, 2020 Admission HPI Per Admitting Provider This is a 64 y/o female with a PMH of prediabetes, GERD, dyslipidemia, hypothyroidism and asthma who presented to the ED this afternoon with the abrupt onset of stroke-like symptoms around 2 pm today. Stroke alert was called. 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 The nurse apparently noticed a mild left facial droop so started the process for transfer to the ED. In the ED, pt noted left handed weakness and then subsequently left lip numbness and tingling. Shortly after arrival however, her symptoms started to improve. At present, she notices some residual left facial weakness, left hand weakness, and left lip decreased sensation. She denies lower extremity symptoms, dysarthria or dysphagia. She did pass a bedside swallow evaluation thought she notes some "dribbling" from her lips when she attempted to drink water. She denies any similar symptoms prior. No history of hypertension. She does have a history of prediabetes but reports that she has modified her lifestyle including regular exercise and has subsequently lost 20 lbs with improvement of her sugars. She does not take any medications for DM. No family history of stroke. Her [id number] was recently diagnosed with COVID and her was around him but pt was not directly exposed. She denies any fevers, chills, cough, SOB, loss of taste or smell. Her COVID test in the ED was negative. Admission Exam Per Admitting Provider RIDDHI: PATIENT [] WAS ADMITTED TO [facility] FOR EVALUATION AND MANAGEMENT FROM [] TO [] . PATIENT IS ADVISED TO REST AT HOME AND FOLLOW UP WITH THE PRIMARY CARE PHYSICIAN FIRST PRIOR TO RETURNING TO WORK. THANK YOU. SINCERELY, TICO HINOJOSA MD ATTENDING PHYSICIAN Discharge Data Allergies Allergy/AdvReac Type Severity Reaction Status Date / Time Quinolones Allergy Unknown "JOINTS Verified 06/01/20 17:15 START LOCKING UP." Consultations 06/01/20 16:16 ED Decision to Admit Stat 06/01/20 16:51 Consult Neurology Routine 06/01/20 16:53 Consult Case Management - Discharge Planning Routine 06/01/20 18:13 Consult Case Management - Discharge Planning Routine 06/03/20 12:34 Consult Health Information Management Routine Ordered Studies 06/01/20 14:59 CT angio head w con Stat CT angio neck with con Stat CT head/brain wo con Stat 06/01/20 18:13 MR brain wo/w con Routine 06/02/20 17:14 US venous doppler LE BI Stat Hospital Course (1) Cerebrovascular accident: Brain MRI: (+) acute infarct right frontal lobe CTA Head and Neck: no stenosis Echo: possible pulmonary shunt right to left Telemetry: sinus rhythm symptoms somewhat improved PT/OT , Speech eval pending Plavix added to Aspirin, x 3 weeks, then Plavix alone Lipitor increased to 40mg daily will need Zio Patch (2) Hypothyroidism: - TSH 0.8 - Continue home dose of levothyroxine (3) Hyperlipidemia: - Increased atorvastatin to 40 mg daily - LDL 54 (4) Asthma: Last exacerbation in December - denies any increased symptoms at present - Continue Symbicort and Singulair (5) Prediabetes: A1C has improved from 6.1 to 5.7 with lifestyle modification and weight loss - A1c 5.8 Heparin SC q8h PT/OT, Speech Eval pending lives with family at home Discharge Plan Discharge Items Patient Disposition: Home - Self-Care Reason For Visit: STROKE LIKE SYMPTOM Discharge Diagnosis: ACUTE STROKE Activity: As commented below Activity Comment: Resume activity gradually as tolerated, no heavy exertion Lifting: Wait until after follow-up appointment Exercise/Sports: Wait until after follow-up appointment Driving/Machine Use: No driving until reevaluated by primary care physician Non-emergency contact: Primary Care Provider Call non-emergency contact if: you have any medication questions and you have a fever Follow-up/Referrals: Daphne Neville MD [Primary Care Provider] - (Date & Time 06/08/2020 11:00 AM Provider Daphne Neville MD Department General Internal Medicine [facility] ) Cindy Silver MD [Physician] - Diet: Carb Consistent or DM2 and Heart Healthy Addtl Attending Provider Instructions: Please review your new medication list and follow instructions carefully. Your new medications include: Plavix-antiplatelet for stroke prevention Lipitor increased from 10 mg to 40 mg daily-for stroke prevention Take your usual aspirin 81 mg daily for 3 weeks then stop. Please take aspirin with a full stomach. Take Plavix 1 tablet daily, indefinitely. Follow-up with primary care physician in 1 week. Appointment schedule as noted above. Follow-up with neurologist Dr. Montiel in 4 to 6 weeks. Please contact our office to schedule an appointment. Contact information noted above. You will need a heart monitor placed. Your primary care physician can assist you with arranging for this. Continue occupational therapy 2-3 times a week, as an outpatient. Medical Emergencies: Call 911 immediately if you experience any of the following warning signs and symptoms of Stroke: Sudden numbness or weakness of the face, arm or leg, especially on one side of the body Sudden confusion, trouble speaking or understanding Sudden trouble seeing in one or both eyes Sudden trouble walking, dizziness, loss of balance or coordination Sudden severe headache with no cause Do not delay calling 911 if you experience any warning signs or symptoms of a stroke. Delay in seeking medical attention may affect what treatments can be given to you. Risk Factors for Stroke: You can reduce your chances of stroke by working with your medical provider to adopt a healthy lifestyle. Some specific ways to lower your chance of stroke are: If you are a smoker, now is the time to stop smoking cigarettes If you are diabetic, improve the control of your blood sugars Avoid excessive amounts of alcohol Control high blood pressure Lose weight if you are overweight Be sure to lead an active lifestyle Eat a healthy diet low in salt, cholesterol and fat You should know about other risk factors for stroke that you are unable to control. These include: Age 55 years or older Male gender Certain racial groups: , or / Family History of Stroke, Mini stroke or Heart Attack Sickle Cell Disease Follow Up: It is important for you to keep your follow up appointments with your medical provider. Pending Studies at Discharge: Yes Studies:: Heart monitor placement; outpatient transesophageal echocardiogram Stand-Alone Forms: My [place] [employer], Smoking Cessation Medications and DC Order Prescriptions: New clopidogrel 75 mg Tablet 75 mg PO QAM Qty: 30 RF: 2 atorvastatin 40 mg Tablet 40 mg PO HS Qty: 30 RF: 2 Continued ascorbic acid (vitamin C) [Vitamin C] 500 mg Tablet 250 mg PO BID RF: 0 Multivitamin And Mineral Tablet 1 tab PO QAM RF: 0 omega-3 acid ethyl esters [Lovaza] 1 gram Capsule 1 cap PO QAM RF: 0 Vitamin B Powder 1 dose PO DAILY RF: 0 albuterol sulfate 2.5 mg /3 mL (0.083 %) solution for nebulization 2.5 mg inhalation Q4H PRN (Reason: Shortness Of Breath Or Wheezing) RF: 0 levothyroxine [Synthroid] 88 mcg tablet 88 mcg PO QAM RF: 0 montelukast 10 mg tablet 10 mg PO DAILY RF: 0 albuterol sulfate [Proventil HFA] 90 mcg/actuation HFA aerosol inhaler 2 inh INHALATION Q4H PRN (Reason: Shortness Of Breath Or Wheezing) RF: 0 budesonide-formoterol [Symbicort] 80-4.5 mcg/actuation HFA aerosol inhaler 2 puff INHALATION DAILY RF: 0 coenzyme Q10 [Co Q-10] 10 mg Capsule 10 mg PO DAILY RF: 0 cyanocobalamin (vitamin B-12) 1,000 mcg Tablet 1,000 mcg PO DAILY RF: 0 cholecalciferol (vitamin D3) [Vitamin D3] 25 mcg (1,000 unit) Tablet 25 mcg PO DAILY RF: 0 calcium carbonate-vitamin D3 1,000 mg(2,500 mg)-800 unit Tablet 1 tab PO DAILY RF: 0 aspirin 81 mg Tablet,Delayed Release (Dr/Ec) 81 mg PO QPM Qty: 0 RF: 0 Discontinued atorvastatin 10 mg tablet 10 mg PO QPM RF: 0 Admission Data Admit Date/Time: 06/01/20 16:51 Attending Provider: Tico Hinojosait Provider: Fior Roberson Primary Care Provider: Daphne Neville Other Providers: Fior Roberson ; Cindy Hoang ; Booker Nixon ; Cindy Silver ; Cash Rasmussen.
[2020-06-03] MEDS ORDERED: STROKE PATIENT DISCHARGE STA (12:46)
--- NOTE | 2020-06-03 13:29 | Pharmacy Report ---
Pharmacist Stroke Counseling - Date of Service June 03, 2020 - Scope: Pharmacy has been consulted to provide medication discharge counseling for this patient admitted with [ischemic stroke] [hemorrhagic stroke] [transient ischemic attack] as per the Pharmacist Discharge Counseling for Stroke Patients Pro tocol. - Medications on Discharge: Home Medications Medication Instructions Recorded Confirmed Vitamin B Powder 1 dose PO DAILY 06/01/20 06/01/20 albuterol sulfate 2.5 mg INHALATION Q4H PRN 06/01/20 06/01/20 albuterol sulfate [Proventil HFA] 2 inh INHALATION Q4H PRN 06/01/20 06/01/20 ascorbic acid (vitamin C) [Vitamin 250 mg PO BID 06/01/20 06/01/20 C] aspirin [Aspirin Low-Strength] 81 mg PO QPM 06/01/20 06/01/20 atorvastatin 10 mg PO QPM 06/01/20 06/01/20 budesonide-formoterol [Symbicort] 2 puff INHALATION DAILY 06/01/20 06/01/20 calcium carbonate-vitamin D3 1 tab PO DAILY 06/01/20 06/01/20 cholecalciferol (vitamin D3) 25 mcg PO DAILY 06/01/20 06/01/20 [Vitamin D3] coenzyme Q10 [Co Q-10] 10 mg PO DAILY 06/01/20 06/01/20 cyanocobalamin (vitamin B-12) 1,000 mcg PO DAILY 06/01/20 06/01/20 levothyroxine [Synthroid] 88 mcg PO QAM 06/01/20 06/01/20 montelukast 10 mg PO DAILY 06/01/20 06/01/20 multivitamin,ln-jtib-Ti-FA-min 1 tab PO QAM 06/01/20 06/01/20 [Multivitamin And Mineral] omega-3 acid ethyl esters [Lovaza] 1 cap PO QAM 06/01/20 06/01/20 New Rx's Medication Instructions Recorded atorvastatin 40 mg PO HS #30 tab 06/03/20 clopidogrel 75 mg PO QAM #30 tab 06/03/20 - Action: The above medications, specifically ones for stroke treatment/prophylaxis, have been reviewed in detail with the patient and/or patient fundraising sale representative(s) prior to discharge. This includes indication, common adverse reactions, drug interact ions, and medication administration. Medication counseling has been employed using the teach-back method to ensure understanding. - Outcome: The patient and/or patient fundraising sale representative(s) have demonstrated understanding of the medications. Additional comments: Ms. Olivarez was very pleasant to speak with. Discussed new medication plavix and increase to atorvastatin. Patient is very knowledgeable about atorvastatin. Discussed clopidogrel and possible interaction with over the counter heartburn medication omeprazole. Patient to discuss with provider prior to starting any of these medications. Patient did ask about fish oil with the plavix- which does have some inhibition of platelet aggregation. Doctor has continued this on discharge- should monitor for s/s of bleeding but it is not contraindicated, some studies have not shown clinically significant events with concurrent use. Thank you for allowing pharmacy to be involved in the care of this patient. Please call [phone] with any additional questions
--- NOTE | 2020-06-03 19:56 | Hospitalist Progress Note ---
Date of Service Late entry Date of service noted below June 03, 2020 Assessment & Plan (1) Cerebrovascular accident: Brain MRI: (+) acute infarct right frontal lobe CTA Head and Neck: no stenosis Echo: Agitated saline contrast was noted in the left atrium, several cycles after administration, consistent with possible intrapulmonary shunt rather than interatrial shunt Mild concentric LVH, EF 60 to 65%, left ventricular wall motion is normal Telemetry: sinus rhythm Left hand weakness is improving PT and OT recommends outpatient rehab Plavix 5 mg p.o. daily added to Aspirin, x 3 weeks; then Plavix only, for a lifetime Lipitor increased to 40mg daily will need Zio Patch placement as an outpatient to rule out underlying paroxysmal atrial fibrillation Will need outpatient MAGNUS to evaluate possible intrapulmonary shunt Follow-up with neurologist in 4 to 6 weeks Strict risk factor control including prediabetes, blood pressure management, dyslipidemia (2) Hypothyroidism: - TSH 0.8 - Continue home dose of levothyroxine (3) Hyperlipidemia: - Increased atorvastatin to 40 mg daily - LDL 54 (4) Asthma: Last exacerbation in December - denies any increased symptoms at present - Continue Symbicort and Singulair (5) Prediabetes: A1C has improved from 6.1 to 5.7 with lifestyle modification and weight loss - A1c 5.8 Disposition Discharge to home Follow-up with PCP next week Follow-up with neurologist in 4 to 6 weeks Will need Zio patch monitor and MAGNUS Admission and Anticipated Discharge Date Admission Date: June 01, 2020 Subjective Follow-up for acute CVA Seen resting bedside chair, comfortable, not in distress States she feels much better overall Hand weakness continues to improve, able to use her hand and fingers much more effectively Denies any other new neurologic symptoms No headache, dizziness, nausea vomiting No chest pain, palpitations, shortness of breath No other symptoms States she is ready medically discharged Review of Systems Review of Systems: All systems reviewed & are unremarkable except as noted in Subjective Physical Exam Physical Exam: General- oriented x 3, not in distress, speaks in sentences with no effort or accessory muscle use Eyes- anicteric Neck- no JVD Lungs- clear breath sounds bilaterally, no rales/wheezes Heart- normal rate, regular rhythm; no murmurs Abdomen- normal bowel sounds, nondistended, soft, nontender Extremities- no pretibial edema, no calf tenderness Neuro- alert, oriented x 3; mild weakness of the left hand, Otherwise no other new neurologic deficits Skin- warm & dry Results & Data Results & Data ([facility]) Vital Signs (Past 12 Hours) Vital Signs Temp Pulse Resp BP Pulse Ox 06/03/20 13:38 36.7 C 71 18 147/81 H 97 06/03/20 11:54 36.7 C 71 18 147/81 H 97 (1) Hyperlipidemia Hyperlipidemia type: unspecified Qualified Code(s): E78.5 - Hyperlipidemia, unspecified (2) Hypothyroidism Hypothyroidism type: acquired Qualified Code(s): E03.9 - Hypothyroidism, unspecified (3) Cerebrovascular accident CVA mechanism: unspecified Qualified Code(s): I63.9 - Cerebral infarction, unspecified (4) Asthma Asthma complication type: uncomplicated Asthma persistence: unspecified Asthma severity: mild Qualified Code(s): J45.909 - Unspecified asthma, uncomplicated
--- NOTE | 2020-06-06 18:57 | Discharge Summary ---
Date of Service June 06, 2020 Admission HPI Per Admitting Provider This is a 64 y/o female with a PMH of prediabetes, GERD, dyslipidemia, hypothyroidism and asthma who presented to the ED this afternoon with the abrupt onset of stroke-like symptoms around 2 pm today. Stroke alert was called. 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 The nurse apparently noticed a mild left facial droop so started the process for transfer to the ED. In the ED, pt noted left handed weakness and then subsequently left lip numbness and tingling. Shortly after arrival however, her symptoms started to improve. At present, she notices some residual left facial weakness, left hand weakness, and left lip decreased sensation. She denies lower extremity symptoms, dysarthria or dysphagia. She did pass a bedside swallow evaluation thought she notes some "dribbling" from her lips when she attempted to drink water. She denies any similar symptoms prior. No history of hypertension. She does have a history of prediabetes but reports that she has modified her lifestyle including regular exercise and has subsequently lost 20 lbs with improvement of her sugars. She does not take any medications for DM. No family history of stroke. Her [id number]-miz was recently diagnosed with COVID and her was around him but pt was not directly exposed. She denies any fevers, chills, cough, SOB, loss of taste or smell. Her COVID test in the ED was negative. Admission Exam Per Admitting Provider Constitutional: WD/WN, vitals as above no acute distress Eyes: PERRL, conjunctivae normal, anicteric sclerae ENMT: external ear and nose normal, oropharynx normal Neck: trachea midline Respiratory: normal respiratory effort, lungs clear to auscultation Auscultation: no rales, no rhonchi and no wheezes Cardiovascular: Rate/Rhythm: regular rate and regular rhythm Heart Sounds: no gallop, no murmur and no cardiac rub Gastrointestinal (Abdomen): Inspection/Auscultation: normal bowel sounds; abdomen not distended Percussion/Palpation: abdomen soft; abdomen nontender Musculoskeletal: Head/Neck/Chest: normocephalic, head atraumatic and neck supple Extremities: no cyanosis and no clubbing Skin: no rashes, warm and dry Neurologic: + focal motor deficit Speech / Cognition: normal speech Motor/Sensory: no tremor Cranial Nerves: tongue midline, able to rotate head bilaterally and symmetric palate elevation Mild left facial droop noted with smiling > frowning, left hand clinical coder strength 3/5, right hand 5/5, left and right elbow flexion/extension 5/5 and equal, bilateral LE strength 5/5 Psychiatric: A+Ox3, euthymic affect Principal Diagnosis Acute cerebrovascular accident Discharge Exam General- oriented x 3, not in distress, speaks in sentences with no effort or accessory muscle use Eyes- anicteric Neck- no JVD Lungs- clear breath sounds bilaterally, no rales/wheezes Heart- normal rate, regular rhythm; no murmurs Abdomen- normal bowel sounds, nondistended, soft, nontender Extremities- no pretibial edema, no calf tenderness Neuro- alert, oriented x 3; mild weakness of the left hand, Otherwise no other new neurologic deficits Skin- warm & dry Discharge Data Allergies Allergy/AdvReac Type Severity Reaction Status Date / Time Quinolones Allergy Unknown "JOINTS Verified 06/01/20 17:15 START LOCKING UP." Consultations 06/01/20 16:16 ED Decision to Admit Stat 06/01/20 16:51 Consult Neurology Routine 06/01/20 16:53 Consult Case Management - Discharge Planning Routine 06/01/20 18:13 Consult Case Management - Discharge Planning Routine 06/03/20 12:34 Consult Health Information Management Routine Ordered Studies 06/01/20 14:59 CT angio head w con Stat FINDINGS: No acute intracranial hemorrhage, midline shift or mass effect is present. The brain volume is normal. Ventricular system is normal. Basal cis terns are patent. There are no extra-axial collections. There are no findings to suggest acute dural sinus thrombosis or acute territorial infarct. The bilateral M1, M2, A1 and A2 segments are patent. Posterior circulation is intact. There is no stenosis or aneurysm within the intracranial vessels. No dissection is noted. No central vessel occlusion is noted. Postoperative findings within the sinuses are noted. There is no evidence for sinusitis. IMPRESSION: Unremarkable CTA of the head. CT angio neck with con Stat Findings: There is no cervical lymphadenopathy. No cervical spine fracture is noted. The epiglottis is normal. The bilateral common carotid, cervical internal carotid and vertebral arteries are patent. No dissection is noted. No aneurysm within the neck is noted. Minimal atherosclerotic plaque is present. CTA of the head will be reported separately. IMPRESSION: Unremarkable CTA of the neck. No dissection. No stenosis. CT head/brain wo con Stat Brain parenchyma: There is minimal microangiopathic change. There is no hemorrhage, mass effect, or evidence of acute territorial ischemia by CT criteria. Sánchez-white matter differentiation is preserved. No extra-axial fluid collection is seen. Ventricles, sulci, cisterns: Normal in configuration. Intracranial vasculature: The visualized intracranial vasculature at the skull base is normal in appearance. Calvarium: Unremarkable. Sinuses and mastoids: The visualized paranasal sinuses are clear. The mastoid air cells are well pneumatized. Orbits: The bony orbits are grossly intact. IMPRESSION: There is no hemorrhage, mass effect, or evidence of acute territorial ischemia by CT criteria. 06/01/20 18:13 MR brain wo/w con Routine FINDINGS: Coordinate Measuring Machine Programmer localizer images demonstrate no gross extracranial abnormality. 1.8 x 0.9 cm area of cortically based restricted diffusion involves the right frontal lobe near the vertex, image 17 series 4 without appreciable abnormal T2/FLAIR signal. No acute territorial infarct. Midline structures including the corpus callosum, brainstem, optic chiasm, pituitary and pineal glands appear unremarkable the sagittal T1 series. No cerebellar tonsillar herniation. No acute intracranial hemorrhage, midline shift, abnormal extra-axial collection, hydrocephalus or intracranial mass. No abnormal intra-axial or extra-axial enhancement. Minimal patchy white matter T2/FLAIR hyperintensities within the bilateral frontal hemispheres suggests a component of chronic microvascular ischemic disease. Cerebral venous sinuses and major arterial flow voids at the level of the skull base appear patent. Mastoid air cells are generally clear. Mild mucosal thickening of the ethmoid air cells. Rightward bowing and spurring of the nasal septum. Skull, orbits and soft tissues are unremarkable. IMPRESSION: 1. Acute infarct of the right frontal lobe near the vertex, 1.8 x 0.9 cm. 2. No abnormal enhancement. 3. No acute intracranial hemorrhage or midline shift. 06/02/20 17:14 US venous doppler LE BI Stat FINDINGS: There is no sonographic evidence of deep venous thrombosis identified in the right or left lower extremity. The common femoral, superficial femoral, and popliteal veins are patent and normally compressible bilaterally. The greater saphenous vein and the profunda femoris vein at the junction with the common femoral vein are clear in both legs. The visualized calf veins are patent bilaterally. IMPRESSION: There is no sonographic evidence of deep venous thrombosis kari ntified in the right or left lower extremity. Hospital Course (1) Cerebrovascular accident: Brain MRI: (+) acute infarct right frontal lobe CTA Head and Neck: no stenosis Echo: Agitated saline contrast was noted in the left atrium, several cycles after administration, consistent with possible intrapulmonary shunt rather than interatrial shunt Mild concentric LVH, EF 60 to 65%, left ventricular wall motion is normal Telemetry: sinus rhythm Left hand weakness is improving PT and OT recommends outpatient rehab Plavix 5 mg p.o. daily added to Aspirin, x 3 weeks; then Plavix only, for a lifetime Lipitor increased to 40mg daily will need Zio Patch placement as an outpatient to rule out underlying paroxysmal atrial fibrillation Will need outpatient MAGNUS to evaluate possible intrapulmonary shunt Follow-up with neurologist in 4 to 6 weeks Strict risk factor control including prediabetes, blood pressure management, dyslipidemia (2) Hypothyroidism: - TSH 0.8 - Continue home dose of levothyroxine (3) Hyperlipidemia: - Increased atorvastatin to 40 mg daily - LDL 54 (4) Asthma: Last exacerbation in December - denies any increased symptoms at present - Continue Symbicort and Singulair (5) Prediabetes: A1C has improved from 6.1 to 5.7 with lifestyle modification and weight loss - A1c 5.8 Disposition Discharge to home Follow-up with PCP next week Follow-up with neurologist in 4 to 6 weeks Will need Zio patch monitor and MAGNUS Total Time Total Time Spent Total Time Spent (In Minutes): > 30 minutes Discharge Plan Discharge Items Patient Disposition: Home - Self-Care Reason For Visit: STROKE LIKE SYMPTOM Discharge Diagnosis: ACUTE STROKE Activity: As commented below Activity Comment: Resume activity gradually as tolerated, no heavy exertion Lifting: Wait until after follow-up appointment Exercise/Sports: Wait until after follow-up appointment Driving/Machine Use: No driving until reevaluated by primary care physician Non-emergency contact: Primary Care Provider Call non-emergency contact if: you have any medication questions and you have a fever Follow-up/Referrals: Daphne Neville MD [Primary Care Provider] - (Date & Time 06/08/2020 11:00 AM Provider Daphne Neville MD Department General Internal Medicine [facility] ) Cindy Silver MD [Physician] - Diet: Carb Consistent or DM2 and Heart Healthy Addtl Attending Provider Instructions: Please review your new medication list and follow instructions carefully. Your new medications include: Plavix-antiplatelet for stroke prevention Lipitor increased from 10 mg to 40 mg daily-for stroke prevention Take your usual aspirin 81 mg daily for 3 weeks then stop. Please take aspirin with a full stomach. Take Plavix 1 tablet daily, indefinitely. Follow-up with primary care physician in 1 week. Appointment schedule as noted above. Follow-up with neurologist Dr. Montiel in 4 to 6 weeks. Please contact our office to schedule an appointment. Contact information noted above. You will need a heart monitor placed. Your primary care physician can assist you with arranging for this. Continue occupational therapy 2-3 times a week, as an outpatient. Medical Emergencies: Call 911 immediately if you experience any of the following warning signs and symptoms of Stroke: Sudden numbness or weakness of the face, arm or leg, especially on one side of the body Sudden confusion, trouble speaking or understanding Sudden trouble seeing in one or both eyes Sudden trouble walking, dizziness, loss of balance or coordination Sudden severe headache with no cause Do not delay calling 911 if you experience any warning signs or symptoms of a stroke. Delay in seeking medical attention may affect what treatments can be given to you. Risk Factors for Stroke: You can reduce your chances of stroke by working with your medical provider to adopt a healthy lifestyle. Some specific ways to lower your chance of stroke are: If you are a smoker, now is the time to stop smoking cigarettes If you are diabetic, improve the control of your blood sugars Avoid excessive amounts of alcohol Control high blood pressure Lose weight if you are overweight Be sure to lead an active lifestyle Eat a healthy diet low in salt, cholesterol and fat You should know about other risk factors for stroke that you are unable to control. These include: Age 55 years or older Male gender Certain racial groups: , or / Family History of Stroke, Mini stroke or Heart Attack Sickle Cell Disease Follow Up: It is important for you to keep your follow up appointments with your medical provider. Pending Studies at Discharge: Yes Studies:: Heart monitor placement; outpatient transesophageal echocardiogram Stand-Alone Forms: Medications to Prevent Stroke, My [facility] [employer], Work/School Release (Inpt), Smoking Cessation Medications and DC Order Prescriptions: New clopidogrel 75 mg Tablet 75 mg PO QAM Qty: 30 RF: 2 atorvastatin 40 mg Tablet 40 mg PO HS Qty: 30 RF: 2 Continued ascorbic acid (vitamin C) [Vitamin C] 500 mg Tablet 250 mg PO BID RF: 0 multivitamin,[id number]-min Tablet 1 tab PO QAM RF: 0 omega-3 acid ethyl esters [Lovaza] 1 gram Capsule 1 cap PO QAM RF: 0 Vitamin B Powder 1 dose PO DAILY RF: 0 albuterol sulfate 2.5 mg /3 mL (0.083 %) solution for nebulization 2.5 mg inhalation Q4H PRN (Reason: Shortness Of Breath Or Wheezing) RF: 0 levothyroxine [Synthroid] 88 mcg tablet 88 mcg PO QAM RF: 0 montelukast 10 mg tablet 10 mg PO DAILY RF: 0 albuterol sulfate [Proventil HFA] 90 mcg/actuation HFA aerosol inhaler 2 inh INHALATION Q4H PRN (Reason: Shortness Of Breath Or Wheezing) RF: 0 budesonide-formoterol [Symbicort] 80-4.5 mcg/actuation HFA aerosol inhaler 2 puff INHALATION DAILY RF: 0 coenzyme Q10 [Co Q-10] 10 mg Capsule 10 mg PO DAILY RF: 0 cyanocobalamin (vitamin B-12) 1,000 mcg Tablet 1,000 mcg PO DAILY RF: 0 cholecalciferol (vitamin D3) [Vitamin D3] 25 mcg (1,000 unit) Tablet 25 mcg PO DAILY RF: 0 calcium carbonate-vitamin D3 1,000 mg(2,500 mg)-800 unit Tablet 1 tab PO DAILY RF: 0 aspirin 81 mg Tablet,Delayed Release (Dr/Ec) 81 mg PO QPM Qty: 0 RF: 0 Discontinued atorvastatin 10 mg tablet 10 mg PO QPM RF: 0 Discharge Orders: Discharge Order (Routine); Ordered 06/03/20 Ordered By: Tico Garner Admission Data Admit Date/Time: 06/01/20 16:51 Attending Provider: Tico Garner Admit Provider: Fior Roberson Primary Care Provider: Daphne Neville Other Providers: Fior Roberson ; Cindy Hoang ; Booker Nixon ; Cindy Silver ; Cash Rasmussen Other Interventions: Discharge Summary Assessment (RN) Last Done: 06/03/20 13:38
== END 2020-06-03 13:30 | disposition home or self-care (01) | DRG 66 ==
LOC: ED 15:04 → 2N 16:51 → SUATTDRO 16:51 → 2N 17:48